=== PATIENT | male | born 1985 | race Caucasian/White ===

== ENCOUNTER 2018-06-04 18:40 | Emergency (ER) | payer BC ==
[2018-06-04] MEDS ORDERED: KETOROLAC 30 MG/ML VIAL IVP ONE (18:48)
[2018-06-04] MEDS ORDERED: ONDANSETRON HCL IV 4 MG/2 ML VIAL IVP ONE (18:48)
--- NOTE | 2018-06-04 18:53 | Emergency Department Record ---
History of Present Illness - General Chief Complaint: Abdominal Pain Stated Complaint: ABD PAIN/SHOOTING UP IN SHOULDER Time Seen by Provider: 06/04/18 18:43 Source: Patient Mode of Arrival: Ambulatory Limitations: No limitations - History of Present Illness Initial Comments: 32 yo male presents to ED for evaluation of left sided rib pain symptoms that began approximately 20 minutes ago. Patient reports pain with deep inspiration , nausea symptoms. Patient denies fevers, chills, or recent illness. Patient does report a history of DM at his baseline. MD Complaint: Other Onset/Timin -: Minutes(s) Location: Epigastric Radiation: Other (Left shoulder) Severity: Severe Quality: Sharp, Stabbing Consistency: Constant Improves With: Nothing Worsens With: Other (Deep breaths) Associated Symptoms: Nausea - Related Data Allergies Allergy/AdvReac Type Severity Reaction Status Date / Time No Known Drug Allergies Allergy Verified 06/04/18 18:52 Review of Systems Constitutional: Denies: Chills, Fever, Malaise, Night sweats Eyes: Denies: Eye discharge, Eye pain ENT: Denies: Congestion, Ear pain, Epistaxis Respiratory: Denies: Cough, Dyspnea Cardiovascular: Reports: Chest pain. Denies: Dyspnea on exertion Endocrine: Denies: Fatigue, Heat or cold intolerance Gastrointestinal: Reports: Abdominal pain, Nausea. Denies: Vomiting Genitourinary: Denies: Incontinence, Retention Musculoskeletal: Denies: Arthralgia, Back pain, Gout, Joint swelling Skin: Denies: Bruising, Change in color Neurological: Denies: Abnormal gait, Confusion, Headache, Seizure Psychiatric: Denies: Anxiety Hematological/Lymphatic: Denies: Anemia, Blood Clots Past Medical History - SOCIAL HISTORY Smoking Status: Never smoker Alcohol Use Comment: 5th vodka daily+ Drug Use: None - RESPIRATORY Hx Respiratory Disorders: No - CARDIOVASCULAR Hx Cardio Disorders: Yes Hx Chest Pain: Yes (w/high caffeine, inhaler and mucinex) - NEURO Hx Neuro Disorders: No - GI Hx GI Disorders: Yes Hx Pancreatitis: Yes (alcoholism) - Hx Genitourinary Disorders: No - ENDOCRINE Hx Endocrine Disorders: Yes Hx Thyroid Disease: Yes (hypo) - MUSCULOSKELETAL Hx Musculoskeletal Disorders: Yes Comment:: injury to left ankle - PSYCH Hx Psych Problems: Yes Hx Anxiety: Yes (on xanax doesn't like the way it makes him feel) Comment:: alcoholism - HEMATOLOGY/ONCOLOGY Hx Hematology/Oncology Disorders: No Family Medical History Hx Cancer: Father *Cancer Comment: Leukemia Physical Exam - General General Appearance: Alert, Oriented x3, Cooperative, Moderate distress, Anxious , Other (Smells of marijuana on examination, appears in moderate distress due to pain symptoms) Limitations: No limitations - Head Head exam: Atraumatic, Normocephalic, Normal inspection Head exam detail: negative: Abrasion, Contusion, Alexis's sign, General tenderness, Hematoma, Laceration - Eye Eye exam: Normal appearance. negative: Conjunctival injection, Periorbital swelling, Periorbital tenderness, Scleral icterus - ENT Ear exam: negative: Auricular hematoma, Auricular trauma Nasal Exam: negative: Active bleeding, Discharge, Dried blood, Foreign body Mouth exam: negative: Drooling, Laceration, Muffled voice, Tongue elevation - Neck Neck exam: Normal inspection. negative: Meningismus, Tenderness - Respiratory Respiratory exam: Normal lung sounds bilaterally. negative: Rales, Respiratory distress, Rhonchi, Stridor - Cardiovascular Cardiovascular Exam: Regular rate, Normal rhythm, Normal heart sounds - GI/Abdominal GI/Abdominal exam: Soft, Tenderness (TTP epigastric, LUQ quadrants on examination.). negative: Rebound - Rectal Rectal exam: Deferred - exam: Deferred - Extremities Extremities exam: Normal inspection. negative: Pedal edema, Tenderness - Back Back exam: Denies: CVA tenderness (R), CVA tenderness (L) - Neurological Neurological exam: Alert, Normal gait, Oriented X3 - Psychiatric Psychiatric exam: Normal affect, Normal mood - Skin Skin exam: Normal color. negative: Abrasion Type of lesion: negative: abrasion Course - Reevaluation(s) Reevaluation #1: 06/04/18 19:07 CXR: No acute process Patient is back from radiology, no pneumothorax or an acute process identified on review, CT imaging ordered of the abdomen and pelvis. Reevaluation #2: 06/04/18 19:49 Laboratory studies were reviewed and are grossly unremarkable for an acute process. Patient is now returning from CT imaging. Reevaluation #3: 06/04/18 20:46 CT Abdomen and Pelvis: Pancreatic psuedocyst Mild inflammatory changes to the area Patient was updated on all results, reports that he is feeling much improved following Valium. Patient was counseled re: possible pancreatitis, treatment options. As his pain is controlled, no vomiting, patient appears stable for discharge with return for any worsening of his symptoms. Medical Decision Making - Lab Data Result diagrams: 06/04/18 19:20 06/04/18 19:20 Disposition Disposition: Discharge Clinical Impression: Pancreatic pseudocyst Disposition: Home, Self-Care Condition: (2) Stable Instructions: Pancreatitis (ED) Additional Instructions: Return to ED if your symptoms worsen or if you have any concerns. Ibuprofen as directed. Follow-up with your family doctor in 3-5 days as directed. Forms: Patient Portal Access Time of Disposition: 20:49 Quality - Quality Measures Quality Measures: N/A - Blood Pressure Screening Does Patient Have Any of the Following: No Blood Pressure Classification: Hypertensive Reading Systolic Measurement: 164 Diastolic Measurement: 113 Screening for High Blood Pressure: < First Hypertensive BP, F/U Documented > [ [id number]] First Hypertensive Follow-up Interventions: Referral to alternative/primary care provider.
[2018-06-04] MEDS ORDERED: 0.9 % SODIUM CHLORIDE 1000ML 1,000 ML IV SCH (19:00)
[2018-06-04] MEDS ORDERED: DIAZEPAM (VALIUM) 5MG/ML **10ML VIAL IVP ONE (19:16)
[2018-06-04 19:24] LABS: BASO % 0.5 % (0-6); EOS % 3.5 % (0-6); GRAN % 51.7 % (47-80); HEMATOCRIT 46.8 % (42.0-52.0); HEMOGLOBIN 15.7 gm/dl (14.0-18.0); LYMPH % 38.9 % (16-45); MEAN CELL VOLUME 88.3 fl (81-97); MEAN CORPUSCULAR HEMOGLOBIN 29.6 pg (27-33); MEAN CORPUSCULAR HGB CONC 33.5 g/dl (32-36); MEAN PLATELET VOLUME 9.8 fl (7.4-10.4); MONO % 5.4 % (0-9); PLATELET COUNT 380 K/uL (130-400); RED CELL DISTRIBUTION WIDTH 12.2 % (11.5-14.5); WHITE BLOOD COUNT W/O DIFF 10.6 K/uL (4.2-12.2)
[2018-06-04 19:32] LABS: BLOOD UREA NITROGEN 16 mg/dL (6-20); CREATININE 0.9 mg/dL (0.7-1.2); EST GLOMERULAR FILTRATION RATE > 60 mL/min
[2018-06-04 19:33] LABS: LIPASE 19 U/L (13-60); TOTAL PROTEIN 7.4 g/dL (6.6-8.7)
[2018-06-04 19:35] LABS: GLUCOSE,RANDOM 187 mg/dL (74-109)
[2018-06-04 19:38] LABS: ALBUMIN 4.9 g/dL (4.0-5.0); ALKALINE PHOSPHATASE 68 U/L (40-129); ALT/SGPT 20 U/L (<41); AST/SGOT 13 U/L (10.0-50.0)
--- NOTE | 2018-06-07 08:31 | RADIOLOGY REPORT ---
EXAM: CHEST, TWO VIEWS HISTORY: LEFT SHOULDER AND CHEST PAIN. TECHNIQUE: Two views of the chest were obtained. FINDINGS: The heart and pulmonary vessels are normal. The lungs are clear. There are no effusions. There is no pneumothorax. There are no clear cut osseous abnormalities. IMPRESSION: NORMAL CHEST. JOB NUMBER: [id number] [facility]
--- NOTE | 2018-06-07 08:47 | CT SCAN REPORT ---
EXAM: CT OF THE ABDOMEN AND PELVIS WITH INTRAVENOUS CONTRAST HISTORY: ABDOMINAL PAIN/SHOOTING UP IN SHOULDER. TECHNIQUE: CT of the abdomen and pelvis was obtained with intravenous contrast. Comparison: 09/02/15. FINDINGS: The lung bases and pleural spaces are clear. The liver demonstrates modest periportal edema. No biliary distention is seen. The gallbladder is normal. The pancreas demonstrates an irregular fairly well walled off fluid collection in the tail of the pancreas. The collection measures 5.4 x 6.9 x 7.2 cm. There is minimal inflammation between the pancreas and the lesser curve of the stomach. There is a small cyst near the splenic hilum. The adrenal glands and kidneys are unremarkable. The spleen is unremarkable except for small granulomata. There is no mesenteric mass or bowel dilatation. There is no free air. There is no evidence of significant ascites. The pelvic organs demonstrate no masses or adenopathy. The skeletal structures and abdominal wall are preserved. IMPRESSION: THE PATIENT HAS A HISTORY OF PANCREATITIS. THE FINDINGS NEAR THE TAIL OF THE PANCREAS APPEAR TO REPRESENT A PANCREATIC PSEUDOCYST. THE INFLAMMATION AROUND THIS FAIRLY WELL DEFINED PSEUDOCYST MAY REPRESENT ACUTE AND CHRONIC PANCREATITIS. JOB NUMBER: [id number] [facility]
== END 2018-06-04 21:01 | disposition home or self-care (01) ==
LOC: ER 18:40
DX: K86.3 Pseudocyst of pancreas (principal); R11.0 Nausea; R10.13 Epigastric pain; M25.512 Pain in left shoulder; E11.9 Type 2 diabetes mellitus without complications
CPT/HCPCS: 99284 ×2; 96374; 96375; 83690; 85025; 80053; 71046; 74177; Q9967; J1885; J2405; J3360; J7030

== ENCOUNTER 2018-12-11 00:14 | Emergency (ER) | payer BC ==
[2018-12-11] MEDS ORDERED: PROPARACAINE HCL OPTH 15ML BTL OPTH ONE (00:35)
[2018-12-11] MEDS ORDERED: GENTAMICIN SULFATE 0.3% OPTH 5 ML BTL OPTH ONE (00:50)
--- NOTE | 2018-12-11 00:57 | Emergency Department Record ---
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 he stated he wore goggles but he was outside today and some how his eyes were exposed chief complaint: Eye pain, Eye redness Onset/Timin -: Hour(s) Onset Description: Gradual, Awoke with symptoms Location: Both eyes Place: Home If Injury: Other Eye Symptoms: Burning, Discharge, Pain, Photophobia, Redness Severity: Severe Severity scale (1-10): 8 If Pain, Quality: Burning Consistency: Constant Associated Symptoms: Rhinorrhea Treatments Prior to Arrival: None - Related Data Hx Tetanus Toxoid Vaccination: No Patient Tetanus UTD (within 5 yrs): Yes Allergies Allergy/AdvReac Type Severity Reaction Status Date / Time No Known Drug Allergies Allergy Verified 12/11/18 00:31 Travel Screening - Travel/Exposure Within Last 30 Days Have you traveled within the last 30 days?: No - Travel/Exposure Within Last Year Have you traveled outside the [place] in the last year?: No - Additonal Travel Details Have you been exposed to anyone with a communicable illness?: No - Travel Symptoms Symptom Screening: None Review of Systems Reviewed: No additional complaints except as noted below Constitutional: Reports: As per HPI. Denies: Chills, Fever, Malaise, Night sweats, Weakness, Weight change Eyes: Reports: As per HPI. Denies: Eye discharge, Eye pain, Photophobia, Vision change ENT: Reports: As per HPI. Denies: Congestion, Dental pain, Ear pain, Epistaxis, Hearing loss, Throat pain Respiratory: Reports: As per HPI. Denies: Cough, Dyspnea, Hemoptysis, Stridor, Wheezes Cardiovascular: Reports: As per HPI. Denies: Arrhythmia, Chest pain, Dyspnea on exertion, Edema, Murmurs, Orthopnea, Palpitations, Paroxysmal nocturnal dyspnea, Rheumatic Fever, Syncope Endocrine: Reports: As per HPI. Denies: Fatigue, Heat or cold intolerance, Polydipsia, Polyuria Gastrointestinal: Reports: As per HPI. Denies: Abdominal pain, Constipation, Diarrhea, Hematemesis, Hematochezia, Melena, Nausea, Vomiting Genitourinary: Reports: As per HPI. Denies: Dysuria, Frequency, Hematuria, Incontinence, Retention, Testicular pain, Testicular mass, Urgency Musculoskeletal: Reports: As per HPI. Denies: Arthralgia, Back pain, Gout, Joint swelling, Myalgia, Neck pain Skin: Reports: As per HPI. Denies: Bruising, Change in color, Change in hair/nails, Lesions, Pruritus, Rash Neurological: Reports: As per HPI. Denies: Abnormal gait, Confusion, Headache, Numbness, Paresthesias, Seizure, Tingling, Tremors, Vertigo, Weakness Psychiatric: Reports: As per HPI. Denies: Anxiety, Auditory hallucinations, Depression, Homicidal thoughts, Suicidal thoughts, Visual hallucinations Hematological/Lymphatic: Reports: As per HPI. Denies: Anemia, Blood Clots, Easy bleeding, Easy bruising, Swollen glands Past Medical History - SOCIAL HISTORY Smoking Status: Never smoker Alcohol Use: None Alcohol Use Comment: 2017 sober Drug Use Detail:: Marijuana - RESPIRATORY Hx Respiratory Disorders: No - CARDIOVASCULAR Hx Cardio Disorders: Yes Hx Chest Pain: Yes (w/high caffeine, inhaler and mucinex) - NEURO Hx Neuro Disorders: No - GI Hx GI Disorders: Yes Hx Pancreatitis: Yes (alcoholism) - Hx Genitourinary Disorders: No - ENDOCRINE Hx Endocrine Disorders: Yes Hx Diabetes: Yes Hx Thyroid Disease: Yes (hypo) - MUSCULOSKELETAL Hx Musculoskeletal Disorders: Yes Comment:: injury to left ankle - PSYCH Hx Psych Problems: Yes Hx Anxiety: Yes (on xanax doesn't like the way it makes him feel) Comment:: alcoholism - HEMATOLOGY/ONCOLOGY Hx Hematology/Oncology Disorders: No Family Medical History Any Significant Family History?: No Hx Cancer: Father *Cancer Comment: Leukemia Physical Exam - General General Appearance: Alert, Oriented x3, Cooperative, Mild distress - Head Head exam: Normal inspection - Eye Eye exam: Normal appearance, PERRL, Conjunctival injection, EOMI, Other (slight corneal abrasions bilateral) Pupils: Normal accommodation - ENT ENT exam: Normal exam, Mucous membranes moist, Normal external ear exam, Normal orophraynx Ear exam: Normal external inspection. negative: External canal tenderness Nasal Exam: Normal inspection. negative: Discharge, Sinus tenderness Mouth exam: Normal external inspection, Tongue normal Teeth exam: Normal inspection. negative: Dental caries Throat exam: Normal inspection. negative: Tonsillar erythema, Tonsillar exudate - Neck Neck exam: Normal inspection, Full ROM. negative: Tenderness - Respiratory Respiratory exam: Normal lung sounds bilaterally. negative: Respiratory di stress - Cardiovascular Cardiovascular Exam: Regular rate, Normal rhythm, Normal heart sounds - GI/Abdominal GI/Abdominal exam: Soft, Normal bowel sounds. negative: Tenderness - Rectal Rectal exam: Deferred - exam: Deferred - Extremities Extremities exam: Normal inspection, Full ROM, Normal capillary refill. negative: Tenderness - Back Back exam: Reports: Normal inspection, Full ROM. Denies: Muscle spasm, Rash noted, Tenderness - Neurological Neurological exam: Alert, CN II-XII intact, Normal gait, Oriented X3 - Psychiatric Psychiatric exam: Normal affect, Normal mood - Skin Skin exam: Dry, Intact, Normal color, Warm Course Vital Signs 12/11/18 00:19 Temperature 98.1 F Pulse Rate 68 Respiratory 24 Rate Blood Pressure 137/96 Pulse Ox 100 Disposition Disposition: Discharge Clinical Impression: Welders' keratitis of both eyes Disposition: Home, Self-Care Condition: (1) Good Instructions: Corneal Flash Encinas (ED) Additional Instructions: follow up with ophthamology. return sooner if worse. gentimicin 2 drops in each eye 4 times a day for 5 days Quality - Quality Measures Quality Measures: N/A - Blood Pressure Screening Does Patient Have Any of the Following: Active Dx of HTN Blood Pressure Classification: Hypertensive Reading Systolic Measurement: 137 Diastolic Measurement: 96 Screening for High Blood Pressure: Patient Exclusion, Hx of HTN [G9744]
[2018-12-11] MEDS ORDERED: HYDROCODONE/APAP 5/325MG TABLET PO ONE (00:58)
== END 2018-12-11 01:36 | disposition home or self-care (01) ==
LOC: ER 00:14
DX: H16.133 Photokeratitis, bilateral (principal); W89.8XXA Exposure to other man-made visible and ultraviolet light, initial encounter; Y92.009 Unspecified place in unspecified non-institutional (private) residence as the place of occurrence of the external cause
CPT/HCPCS: 99283